=== PATIENT | female | born 1970 | race African-American/Black ===

== ENCOUNTER 2017-06-14 08:50 | Emergency (ER) | payer OTHER ==
[2017-06-14 09:11] VITALS: BP 140/91; PULSE 79; TEMP 98.7; BMI 36.3
[2017-06-14] MEDS ORDERED: KETOROLAC TROMETHAMINE 60 MG/2 ML VIAL IM ONE (10:10)
[2017-06-14] MEDS ORDERED: KETOROLAC TROMETHAMINE 60 MG/2 ML VIAL ONE (10:17)
--- NOTE | 2017-06-14 10:59 | PDOC ---
History of Present Illness - General Chief Complaint: Pain Stated Complaint: RT KNEE PAIN Time Seen by Provider: 06/14/17 09:55 History Source: Patient Exam Limitations: No Limitations - History of Present Illness Initial Comments: 06/14/17 10:54 47 yr female history of right knee injury in the past, arthritis , states last night she was in the bath tub and she "locked her knee" . Pt today has pain and needs a referral to an orthopedist. pt is ambulating with steady gait. Severity: Yes: mild Lower Ext. Injury Location - Specific Injury Location Knees: right no evidence of injury, right swelling Past History - Past Medical History Allergies/Adverse Reactions: Allergies Allergy/AdvReac Type Severity Reaction Status Date / Time Sulfa (Sulfonamide Allergy Verified 06/14/17 09:11 Antibiotics) Home Medications: Ambulatory Orders Chlorthalidone 25 mg PO DAILY 06/14/17 Naproxen [Naprosyn -] 500 mg PO BID PRN #14 tablet 06/14/17 COPD: No HTN: Yes - Suicide/Smoking/Psychosocial Hx Smoking History: Never smoked Hx Alcohol Use: No Drug/Substance Use Hx: No *Physical Exam - Vital Signs Last Vital Signs Temp Pulse Resp BP Pulse Ox 98.7 F 79 18 140/91 100 06/14/17 09:08 06/14/17 09:08 06/14/17 09:08 06/14/17 09:08 06/14/17 09:08 - Physical Exam General Appearance: Yes: Nourished, Appropriately Dressed HEENT: positive: EOMI, SUBHASH Neck: positive: Supple. negative: Tender Respiratory/Chest: positive: Lungs Clear, Normal Breath Sounds. 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, Fully Oriented, Alert, Normal Mood/ Affect, Normal Response, Motor Strength 5/5 ED Treatment Course - RADIOLOGY Radiology Studies Ordered: Category Date Time Status KNEE 3 POS-RIGHT [RAD] Stat Radiology 06/14/17 10:10 Taken - Medications Given in the ED: ED Medications Discontinued Medications Generic Name Dose Route Start Last Admin Trade Name Freq PRN Reason Stop Dose Admin Ketorolac Tromethamine 60 mg 06/14/17 10:10 06/14/17 10:27 Toradol Injection - IM 06/14/17 10:11 60 mg ONCE ONE Administration Medical Decision Making - Medical Decision Making 06/14/17 11:03 cc: right knee pain , mild swelling did not fall on the knee will get xray to r/o fracture knee immobilizer and toradol IM will refer to orthopedist pt agrees with the plan of care all questions asked and answered at discharge 06/14/17 11:22 *DC/Admit/Observation/Transfer Diagnosis at time of Disposition: Sprain, knee Qualifiers: Encounter type: initial encounter Involved ligament of knee: other ligament Laterality: right Qualified Code(s): S83.8X1A - Sprain of other specified parts of right knee, initial encounter - Discharge Dispostion Disposition: HOME Condition at time of disposition: Good - Prescriptions Prescriptions: Naproxen [Naprosyn -] 500 mg PO BID PRN #14 tablet PRN Reason: Pain - Referrals Referrals: Sandro Morillo MD [Staff Physician] - - Patient Instructions Additional Instructions: use the knee immobilizer while awake remove to sleep take naprosyn for pain as directed follow with the orthopedist listed below elevate your knee and apply warm compresses to the knee every 4hrs for 20 minutes - Post Discharge Activity Forms/Work/School Notes: Back to Work
== END 2017-06-14 11:25 | disposition home or self-care (01) ==
LOC: JERFT 08:50
PROC: 3E0233Z Introduction of Anti-inflammatory into Muscle, Percutaneous Approach (ICD-10-PCS; principal; 2017-06-14)
PROC: 2W3QXYZ Immobilization of Right Lower Leg using Other Device (ICD-10-PCS; 2017-06-14)
DX: S83.8X1A Sprain of other specified parts of right knee, initial encounter (principal); X50.1XXA Overexertion from prolonged static or awkward postures, initial encounter; Y93.E1 Activity, personal bathing and showering; Y92.031 Bathroom in apartment as the place of occurrence of the external cause; Y99.8 Other external cause status
CPT/HCPCS: 73562-TC-RT; 99281-25

== ENCOUNTER 2018-08-10 14:41 | Emergency (ER) | payer OTHER ==
[2018-08-10 14:47] VITALS: BP 162/85; PULSE 64; TEMP 98.1; BMI 36.6
--- NOTE | 2018-08-10 14:48 | PDOC ---
Rapid Medical Evaluation Chief Complaint: Chest Pain Time Seen by Provider: 08/10/18 14:47 Medical Evaluation: Allergies Allergy/AdvReac Type Severity Reaction Status Date / Time Sulfa (Sulfonamide Allergy Verified 08/10/18 14:44 Antibiotics) Vital Signs Temp Pulse Resp BP Pulse Ox 98.1 F 64 18 162/85 98 08/10/18 14:45 08/10/18 14:45 08/10/18 14:45 08/10/18 14:45 08/10/18 14:45 08/10/18 14:48 I have performed a brief in-person evaluation of this patient. The patient presents with a chief complaint of: 4 days of nausea and epigastric discomfort. H/o HTN Pertinent physical exam findings:Stable I have ordered the following:ekg/labs The patient will proceed to the ED for further evaluation. Discharge Disposition - Diagnosis Epigastric discomfort - Referrals - Patient Instructions - Post Discharge Activity
[2018-08-10 15:38] LABS: ALBUMIN 3.9 g/dl (3.4-5.0); ALK PHOS 65 U/L (45-117); ANION GAP 6 MMOL/L (8-16); BILIRUBIN,TOTAL 0.4 mg/dL (0.2-1); BLOOD UREA NITROGEN 17 mg/dL (7-18); CALCIUM 8.8 mg/dL (8.5-10.1); CHLORIDE 103 mmol/L (98-107); CO2 28 mmol/L (21-32); CREATININE 0.7 mg/dL (0.55-1.3); GLUCOSE,RANDOM 79 mg/dL (74-106); LIPASE 156 U/L (73-393); POTASSIUM 3.4 mmol/L (3.5-5.1); SGOT/AST 15 U/L (15-37); SGPT/ALT 18 U/L (13-61); SODIUM 137 mmol/L (136-145); TOT PROT 6.8 g/dl (6.4-8.2)
[2018-08-10 15:40] LABS: URINE APPEARANCE CLOUDY; URINE BILIRUBIN NEGATIVE (<2.0 mg/dL); URINE COLOR YELLOW; URINE GLUCOSE (UA) NEGATIVE (NEGATIVE); URINE KETONE NEGATIVE (NEGATIVE); URINE LEUK ESTERASE NEGATIVE (NEGATIVE); URINE NITRITE NEGATIVE (NEGATIVE); URINE PROTEIN NEGATIVE (NEGATIVE)
[2018-08-10 15:40] LABS: BASO % 0.5 % (0-2.0); EOS % 1.2 % (0-4.5); HEMATOCRIT 38.9 % (32.4-45.2); HEMOGLOBIN 13.6 GM/dL (10.7-15.3); LYMPH % 28.8 % (8-40); MCH 29.2 pg (25.7-33.7); MCHC 34.9 g/dl (32.0-36.0); MEAN CELL VOLUME 83.7 fl (80-96); MONO % 6.5 % (3.8-10.2); PLATELET COUNT 235 K/MM3 (134-434); RBC 4.65 M/mm3 (3.60-5.2)
--- NOTE | 2018-08-11 22:05 | EKG ---
Test Reason : Blood Pressure : / mmHG Vent. Rate : 061 BPM Atrial Rate : 061 BPM P-R Int : 190 ms QRS Dur : 084 ms QT Int : 422 ms P-R-T Axes : 023 045 018 degrees QTc Int : 424 ms NORMAL SINUS RHYTHM SEPTAL INFARCT , AGE UNDETERMINED ABNORMAL ECG NO PREVIOUS ECGS AVAILABLE Confirmed by DUSTIN JARRELL MD ([id number]) on 08/11/2018 10:05:25 PM Referred By: Confirmed By:DUSTIN JARRELL MD
== END 2018-08-10 23:00 | disposition left against medical advice (07) ==
LOC: JER 14:41
DX: R10.13 Epigastric pain (principal); R11.0 Nausea; I10 Essential (primary) hypertension
CPT/HCPCS: 36415; 80053; 81003; 82550; 83690; 84484; 84703; 85025; 93005; 93010; 99281-25

== ENCOUNTER 2019-08-26 16:22 | Emergency (ER) | payer OTHER ==
[2019-08-26 16:51] VITALS: TEMP 98.2; BMI 34.4
--- NOTE | 2019-08-26 16:52 | PDOC ---
Rapid Medical Evaluation Time Seen by Provider: 08/26/19 16:47 Medical Evaluation: Allergies Allergy/AdvReac Type Severity Reaction Status Date / Time Sulfa (Sulfonamide Allergy Verified 08/26/19 16:48 Antibiotics) 08/26/19 16:48 I have performed a brief in-person evaluation of this patient. The patient presents with a chief complaint of: LUQ pain, nausea and diarrhea x 3 days. No sick contact, abx use or recent travel Pertinent physical exam findings:Stable and well romina I have ordered the following:nothing The patient will proceed to the ED for further evaluation Discharge Disposition - Diagnosis Nausea Diarrhea Qualifiers: Diarrhea type: unspecified type Qualified Code(s): R19.7 - Diarrhea, unspecified - Referrals - Patient Instructions - Post Discharge Activity
[2019-08-26] MEDS ORDERED: ONDANSETRON 4 MG/2 ML VIAL IVPUSH ONE (17:52)
[2019-08-26] MEDS ORDERED: SODIUM CHLORIDE 1,000 ML IV STA (17:52)
[2019-08-26] MEDS ORDERED: DICYCLOMINE HCL 20 MG TABLET PO ONE (17:52)
[2019-08-26] MEDS ORDERED: FAMOTIDINE 20 MG/50 ML IVPB 20 MG/50 ML MG IVPB ONE ×2 (17:52→18:19)
[2019-08-26 18:17] LABS: URINE APPEARANCE CLOUDY; URINE BILIRUBIN NEGATIVE (NEGATIVE); URINE COLOR YELLOW; URINE GLUCOSE (UA) NEGATIVE (NEGATIVE); URINE KETONE NEGATIVE (NEGATIVE); URINE LEUK ESTERASE NEGATIVE (NEGATIVE); URINE NITRITE NEGATIVE (NEGATIVE); URINE PROTEIN NEGATIVE (NEGATIVE)
[2019-08-26] MEDS ORDERED: DICYCLOMINE HCL 10 MG CAPSULE ONE (18:18)
[2019-08-26] MEDS ORDERED: ONDANSETRON 4 MG/2 ML VIAL ONE (18:19)
[2019-08-26 18:37] LABS: BASO % 0.6 % (0-2.0); EOS % 1.3 % (0-4.5); HEMATOCRIT 37.2 % (32.4-45.2); HEMOGLOBIN 12.7 GM/dL (10.7-15.3); LYMPH % 18.5 % (8-40); MCH 28.4 pg (25.7-33.7); MCHC 34.2 g/dl (32.0-36.0); MONO % 5.7 % (3.8-10.2); NEUT % 73.9 % (42.8-82.8); PLATELET COUNT 264 K/MM3 (134-434); RBC 4.48 M/mm3 (3.60-5.2); RDW 13.6 % (11.6-15.6); WHITE BLOOD COUNT 8.1 K/mm3 (4.0-10.0)
--- NOTE | 2019-08-26 18:43 | PDOC ---
History of Present Illness - General Chief Complaint: Pain Stated Complaint: UPSET STOMACH Time Seen by Provider: 08/26/19 16:47 History Source: Patient Exam Limitations: No Limitations - History of Present Illness Initial Comments: 08/26/19 18:40 Patient is a 49-year-old female with a history of hypertension who presents to the ED with epigastric abdominal pain, nausea and diarrhea for the last 10 days. She states that her symptoms started after eating fried shrimp. She took 1 Imodium which did help her diarrhea. She denies any fevers or chills. She has been drinking fluids. She states she is nauseated but has not vomited. She denies any recent travel or sick contacts. Past History - Past Medical History Allergies/Adverse Reactions: Allergies Allergy/AdvReac Type Severity Reaction Status Date / Time Sulfa (Sulfonamide Allergy Verified 08/26/19 16:48 Antibiotics) Home Medications: Ambulatory Orders Chlorthalidone 25 mg PO DAILY 06/14/17 COPD: No HTN: Yes - Psycho Social/Smoking Cessation Hx Smoking History: Never smoked Information on smoking cessation initiated: No Hx Alcohol Use: No Drug/Substance Use Hx: No Review of Systems - Review of Systems Comments:: 08/26/19 18:41 - Review of Systems Able to Perform ROS?: Yes Constitutional: No: Fever, Chills, Loss of Appetite, Night Sweats, Weakness Respiratory: No: Cough, Shortness of Breath, Wheezing, Sputum Production Cardiac (ROS): No: Chest Pain, Chest Tightness, Palpitations, Irregular Heart Beat, Edema ABD/GI: No: Vomiting; positive: Abdominal Pain, Diarrhea, nausea : No Dysuria, No Hematuria, No Frequency, No Urgency, No Vaginal Discharge/Pain Musculoskeletal: No: Muscle Pain, Back Pain, Joint Pain, Muscle Weakness, Neck Pain Integumentary: No: Lesions, Rash Neurological: No: Headache, Numbness, Tingling, Weakness, Speech Difficulties *Physical Exam - Vital Signs Last Vital Signs Temp Pulse Resp BP Pulse Ox 98.2 F 77 18 134/79 100 08/26/19 16:48 08/26/19 16:48 08/26/19 16:48 08/26/19 16:48 08/26/19 16:48 - Physical Exam 08/26/19 18:41 - Physical Exam General Appearance: Nourished, Appropriately Dressed, No Distress HEENT: EOMI, Normal Voice, moist mucosa Neck: Supple, No Lymphadenopathy (R), No Lymphadenopathy (L), No Rigidity, No Decreased range of motion Respiratory/Chest: Lungs Clear, Normal Breath Sounds. No Respiratory Distress, No Accessory Muscle Use Cardiovascular: Regular Rhythm, Regular Rate, S1, S2 Gastrointestinal/Abdominal: Normal Bowel Sounds, Soft. No Guarding, No Rebound, No Rigidity; moderate epigastric tenderness to palpation. No CVA tenderness bilaterally. Musculoskeletal: Normal Inspection. No Decreased Range of Motion Extremity: Normal Capillary Refill, Normal Inspection Integumentary: Normal Color, Dry. 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, Fully Oriented, Alert, Normal Mood/Affect, Normal Response ED Treatment Course - LABORATORY CBC & Chemistry Diagram: 08/26/19 18:10 08/26/19 18:10 - ADDITIONAL ORDERS Additional order review: Laboratory Results 08/26/19 17:53 Urine Color Yellow Urine Appearance Cloudy Urine pH 7.0 D Ur Specific [place] 1.015 Urine Protein Negative Urine Glucose (UA) Negative Urine Ketones Negative Urine Blood Negative Urine Nitrite Negative Urine Bilirubin Negative Urine Urobilinogen 1.0 Ur Leukocyte Esterase Negative - Medications Given in the ED: ED Medications Discontinued Medications Generic Name Dose Route Start Last Admin Trade Name Freq PRN Reason Stop Dose Admin Dicyclomine HCl 20 mg 08/26/19 17:52 08/26/19 18:29 Bentyl - PO 08/26/19 17:53 20 mg ONCE ONE Administration Famotidine/Sodium Chloride 20 mg in 50 mls @ 100 mls/hr 08/26/19 17:52 08/25 18:29 Pepcid 20 Mg Premixed Ivpb - IVPB 08/26/19 18:21 100 mls/hr ONCE ONE Administration Ondansetron HCl 4 mg 08/26/19 17:52 08/26/19 18:30 Zofran Injection IVPUSH 08/26/19 17:53 4 mg ONCE ONE Administration Medical Decision Making - Medical Decision Making 08/26/19 18:42 Assessment: Patient is a 49-year-old female with epigastric abdominal pain, nausea and diarrhea over the last 10 days. Plan: -Saline lock and fluids ordered -Labs ordered -Pepcid, Zofran and Bentyl ordered -Will reassess 03/09/20 18:58 The patient is feeling much better after her GI cocktail. She still pending her CMP. If her CMP is within normal limits and she continues to feel well she may be discharged. She has been endorsed to [facility] for further evaluation and treatment. The patient is stable at the time of endorsement. Discharge - Discharge Information Problems reviewed: Yes Clinical Impression/Diagnosis: Nausea Diarrhea Qualifiers: Diarrhea type: unspecified type Qualified Code(s): R19.7 - Diarrhea, unspecified - Follow up/Referral Referrals: ON STAFF,NOT [Primary Care Provider] - - Patient Discharge Instructions - Post Discharge Activity
[2019-08-26 19:17] LABS: ALBUMIN 3.9 g/dl (3.4-5.0); BILIRUBIN,TOTAL 0.4 mg/dL (0.2-1); BLOOD UREA NITROGEN 19.8 mg/dL (7-18); CALCIUM 9.4 mg/dL (8.5-10.1); CREATININE 0.7 mg/dL (0.55-1.3); POTASSIUM 3.5 mmol/L (3.5-5.1); TOT PROT 7.1 g/dl (6.4-8.2)
[2019-08-26 19:38] VITALS: BP 133/74; PULSE 63
--- NOTE | 2019-08-26 19:52 | PDOC ---
*Physical Exam - Vital Signs Last Vital Signs Temp Pulse Resp BP Pulse Ox 98.2 F 63 18 133/74 100 08/26/19 19:20 08/26/19 19:20 08/26/19 19:20 08/26/19 19:20 08/26/19 19:20 - Physical Exam General Appearance: Yes: Appropriately Dressed ED Treatment Course - LABORATORY CBC & Chemistry Diagram: 08/26/19 18:10 08/26/19 18:10 - ADDITIONAL ORDERS Additional order review: Laboratory Results 08/26/19 08/26/19 18:10 17:53 Sodium 135 L Potassium 3.5 Chloride 100 Carbon Dioxide 27 Anion Gap 8 BUN 19.8 H Creatinine 0.7 Est GFR (CKD-EPI)AfAm 117.91 Est GFR (CKD-EPI)NonAf 101.74 Random Glucose 111 H Calcium 9.4 Total Bilirubin 0.4 AST 19 ALT 17 Alkaline Phosphatase 73 Total Protein 7.1 Albumin 3.9 Lipase 120 Urine Color Yellow Urine Appearance Cloudy Urine pH 7.0 D Ur Specific [place] 1.015 Urine Protein Negative Urine Glucose (UA) Negative Urine Ketones Negative Urine Blood Negative Urine Nitrite Negative Urine Bilirubin Negative Urine Urobilinogen 1.0 Ur Leukocyte Esterase Negative 08/26/19 18:10 RBC 4.48 MCV 83.0 MCHC 34.2 RDW 13.6 MPV 8.0 Neutrophils % 73.9 Lymphocytes % 18.5 D Monocytes % 5.7 Eosinophils % 1.3 Basophils % 0.6 - Medications Given in the ED: ED Medications Discontinued Medications Generic Name Dose Route Start Last Admin Trade Name Freq PRN Reason Stop Dose Admin Dicyclomine HCl 20 mg 08/26/19 17:52 08/26/19 18:29 Bentyl - PO 08/26/19 17:53 20 mg ONCE ONE Administration Famotidine/Sodium Chloride 20 mg in 50 mls @ 100 mls/hr 08/26/19 17:52 08/26/19 18:29 Pepcid 20 Mg Premixed Ivpb - IVPB 08/26/19 18:21 100 mls/hr ONCE ONE Administration Sodium Chloride 1,000 mls @ 1,000 mls/hr 08/26/19 17:52 08/26/19 18:29 Normal Saline - IV 08/26/19 18:51 1,000 mls/hr ASDIR STA Administration Ondansetron HCl 4 mg 08/26/19 17:52 08/26/19 18:30 Zofran Injection IVPUSH 08/26/19 17:53 4 mg ONCE ONE Administration Medical Decision Making - Medical Decision Making 08/26/19 19:49 patient is feeling better will d.c home EKG: NSR. EKG changes to V3. old EKG on 08/10/2018 similar findings. patient has a cardiology appt this week in 2 days. Discharge - Discharge Information Problems reviewed: Yes Clinical Impression/Diagnosis: Nausea Diarrhea Qualifiers: Diarrhea type: unspecified type Qualified Code(s): R19.7 - Diarrhea, unspecified Disposition: HOME - Additional Discharge Information Prescriptions: Mag Hydrox/Al Hydrox/Simeth [Mylanta Suspension -] 30 ml PO Q6H PRN #1 bottle PRN Reason: Gas Famotidine [Pepcid -] 40 mg PO DAILY #30 tablet - Follow up/Referral Referrals: ON STAFF,NOT [Primary Care Provider] - - Patient Discharge Instructions Patient Printed Discharge Instructions: [place] Diet Additional Instructions: Drink plenty of fluids start a BRAT ( bananas, rice apples toast) follow up with your doctor as soon as possible. return to the ER if symptoms worsen - Post Discharge Activity Work/Back to School Note: Back to Work
--- NOTE | 2019-08-27 11:01 | EKG ---
Test Reason : Blood Pressure : / mmHG Vent. Rate : 069 BPM Atrial Rate : 069 BPM P-R Int : 160 ms QRS Dur : 094 ms QT Int : 428 ms P-R-T Axes : 013 049 013 degrees QTc Int : 458 ms NORMAL SINUS RHYTHM SEPTAL INFARCT (CITED ON OR BEFORE 10-AUG-2018) ABNORMAL ECG WHEN COMPARED WITH ECG OF 10-AUG-2018 15:06, NO SIGNIFICANT CHANGE WAS FOUND Confirmed by Agusto Singh MD ([id number]) on 08/27/2019 11:00:33 AM Referred By: Confirmed By:Agusto Singh MD
== END 2019-08-26 20:09 | disposition home or self-care (01) ==
LOC: JER 16:22
PROC: 3E033GC Introduction of Other Therapeutic Substance into Peripheral Vein, Percutaneous Approach (ICD-10-PCS; principal; 2019-08-26)
PROC: 3E033GC Introduction of Other Therapeutic Substance into Peripheral Vein, Percutaneous Approach (ICD-10-PCS; 2019-08-26)
DX: R11.0 Nausea (principal); R19.7 Diarrhea, unspecified; I10 Essential (primary) hypertension; Z88.2 Allergy status to sulfonamides
CPT/HCPCS: 36415; 80053; 81003; 83690; 85025; 93005; 93010; 99284-25; J7030

== ENCOUNTER 2020-03-11 11:37 | Emergency (ER) | payer OTHER ==
[2020-03-11 11:47] VITALS: BP 120/81; PULSE 95; TEMP 98.1; BMI 25.2
--- NOTE | 2020-03-11 12:07 | PDOC ---
Documentation entered by Cheri Orellana SCRIBE, acting as scribe for Malini Boyer MD. Malini Boyer MD: This documentation has been prepared by the Esteban eaton Xhesika, SCRIBE, under my direction and personally reviewed by me in its entirety. I confirm that the documentation accurately reflects all work, treatment, procedures, and medical decision making performed by me. History of Present Illness - General Chief Complaint: Hemorrhoids Stated Complaint: ABD PAIN Time Seen by Provider: 03/11/20 11:56 History Source: Patient Exam Limitations: No Limitations - History of Present Illness Initial Comments: 03/11/20 12:02 HPI Patient is a 49-year-old female with a history of hypertension who presents to the ED with 1 week of rectal pain, worse today associated with bowel movement that was painful and small amount of blood. Pt also reports abdominal pain since 07/2019. Pt was seen here in the ED 03/05 for similar symptoms, blood work was wnl and MRCP from 03/05/20 shows an incidental right liver lobe hemangioma, hepatic cysts, small amount of gallbladder sludge no evidence of cholecystitis. 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 Pt states she has been following with GI (Dr. Willett) for her symptoms. Pt states she last had a endoscopy and colonoscopy November 2019. Pt states she has been constipated for the past week but, had a normal BM this morning. Denies fever, chills, chest pain, SOB, palpitation, dizziness, weakness, N, V, D, bladder and bowel problems, leg swelling, No new changes in medications. no suspicious food intake. Of note, CT abdomen and pelvis from January 2020 with mild gastric thickening, similarly seen right lobe hepatic angioma otherwise no acute pathology is noted. Allergies: Sulfa Past Medical History: See HPI Social history: Lives with family. No tobacco, ETOH or drug use. Meds: as documented in EMR PMD: Per Patient, '"Dr. Norman" at [facility] Review of systems Constitutional: no fevers or chills. No weakness HEENT: no headache or dizziness. No congestion. No visual/hearing disturbances. CVS: no cp or syncope. Resp: no sob. No cough. Gastrointestinal: +abdominal pain. +rectal pain. +constipation.. No nausea, vomiting, diarrhea. Genitourinary: no urinary sx, hematuria. no urgency or frequency. MUSCULOSKELETAL: No joint pain and swelling. No neck or back pain. SKIN: no redness or skin changes, no discharge, no rash. No wounds. Hematologic: no easy bruising/bleeding. NEUROLOGIC: No headache, dizziness, LOC or altered mental status. No weakness, numbness or tingling. Psych: no anxiety or depression Allergic/Immunologic: no allergies All other systems reviewed and negative, or as documented in HPI. Physical exam General: awake and alert, crying, mild distress 2/2 pain. HEENT: NCAT, PERRL, EOMI, clear conjunctiva, anicteric, moist mucus membranes, clear oropharynx, no oral lesions.. Neck: neck supple, FROM Resp: CTAB, normal and even respirations, no respiratory distress CVS: RRR, no murmurs, 2+ peripheral pulses throughout, no peripheral edema Abdomen: soft, NTND, no rebound or guarding. No CVAT. Back: nontender, normal inspection and ROM MSK: no edema, CRAIG x4, ROM intact. No clubbing or cyanosis. normal bulk and tone. Rectal: No blood, no tarry stools or melena or hematochezia. No hemorrhoids. + moderately sized,soft, reducible rectal prolapse involving mucosa. +very tender to palpation. Extremities: no calf tenderness Neuro: alert, oriented appropriately; no focal neurologic deficits Psych: cooperative Skin: warm and well perfused, cap refill <2 sec, normal color 03/11/20 12:45 03/11/20 12:56 03/11/20 13:00 Past History - Medical History Allergies/Adverse Reactions: Allergies Allergy/AdvReac Type Severity Reaction Status Date / Time Sulfa (Sulfonamide Allergy Verified 08/26/19 16:48 Antibiotics) Home Medications: Ambulatory Orders Chlorthalidone 25 mg PO DAILY 06/14/17 Famotidine [Pepcid -] 40 mg PO DAILY #30 tablet 08/26/19 Mag Hydrox/Al Hydrox/Simeth [Mylanta Suspension -] 30 ml PO Q6H PRN #1 bottle 08/26/19 Hydrocortisone 2.5% Topical Cr [Anusol 2.5% Hc Cream -] 1 applic RC DAILY PRN #1 tube 03/11/20 COPD: No HTN: Yes - Reproductive History Is Patient Now?: No - Immunization History Immunization Up to Date: No - Psycho-Social/Smoking History Smoking History: Never smoked Have you smoked in the past 12 months: No Information on smoking cessation initiated: No - Substance Abuse Hx (Audit-C & DAST Scrn) How often the patient has a drink containing alcohol: Never Score: In Men: 4 or > Positive; In Women: 3 or > Positive: 0 Screen Result (Pos requires Nsg. Audit-10AR): Negative In the last yr the pt used illegal drug/Rx for NonMed reason: No Score: Yes response is considered Positive: 0 Screen Result (Positive result requires Nsg. DAST-10): Negative *Physical Exam - Vital Signs Last Vital Signs Temp Pulse Resp BP Pulse Ox 98.1 F 95 H 16 120/81 99 03/11/20 11:43 03/11/20 11:43 03/11/20 11:43 03/11/20 11:43 03/11/20 11:43 Medical Decision Making - Medical Decision Making 03/11/20 12:58 Vital Signs Temp Pulse Resp BP Pulse Ox 98.1 F 95 H 16 120/81 99 03/11/20 11:43 03/11/20 11:43 03/11/20 11:43 03/11/20 11:43 03/11/20 11:43 Vital signs are reviewed within normal limits Abdominal exam is unremarkable, no peritoneal signs. Rectal exam negative for any bleeding, hematochezia, melena. She is very tender with rectal prolapse that was reducible. EMLA applied High-fiber diet, constipation care, plenty of fluids and hydration are advised Follow-up with Dr. Willett in 1 week as scheduled. Patient was also given results of her blood work as well as MRCP and CT scan with the findings discussed and as pt requested.. Discharge - Discharge Information Problems reviewed: Yes Clinical Impression/Diagnosis: Rectal mucosa prolapse Condition: Improved Disposition: HOME - Admission No - Additional Discharge Information Prescriptions: Hydrocortisone 2.5% Topical Cr [Anusol 2.5% Hc Cream -] 1 applic RC DAILY PRN #1 tube PRN Reason: rectal pain - Follow up/Referral Referrals: Jean-Pierre Willett MD [Staff Physician] - - Patient Discharge Instructions Patient Printed Discharge Instructions: DI for Rectal Prolapse Additional Instructions: 1) Please follow-up with your primary care doctor in the next 1-2 days. Please call tomorrow for for any urgent issues. follow up with Dr Willett in 1 week as scheduled so you can discuss your symptoms and care. 2) You were given a copy of the tests performed today. Please bring the results with you and review them with your primary care doctor. Your laboratory / imaging results were normal, and provided to you that was done as outpatient 3) If you have any worsening of symptoms or any other concerns please return to the ED immediately. Return if worsening symptoms including fevers, headache, vomiting, visual or hearing disturbances, bloody stools, abdominal pain, chest pain, shortness of breath, syncope, dehydration, inability to take things by mouth/vomiting, altered mental status, or worsening concerning symptoms. 4) Please continue taking your home medications as directed. your medications on discharge include Anusol once daily as needed for rectal pain . you should also take your stool softeners to prevent constipation and hard stools high fiber diet and hydration/ plenty of water is encouraged Stay well hydrated and rest adequately. Make an appointment. If you cannot follow-up with your primary care doctor please return to the ED - Post Discharge Activity
[2020-03-11] MEDS ORDERED: LIDOCAINE 2.5%/PRILOCAINE 2.5% (5 Gram/TUBE) TP ONE ×2 (12:51→12:59)
== END 2020-03-11 13:13 | disposition home or self-care (01) ==
LOC: JER 11:37
DX: K62.3 Rectal prolapse (principal)
CPT/HCPCS: 99284-25

== ENCOUNTER 2023-02-20 16:02 | Emergency (ER) | payer OTHER ==
[2023-02-20 16:10] VITALS: BP 105/53; PULSE 85; RESP 18; TEMP 98.2; BMI 32.5
[2023-02-20] MEDS ORDERED: diazePAM 5 MG TABLET PO ONE (17:08)
[2023-02-20] MEDS ORDERED: LIDOCAINE 5% TOPICAL PATCH TP ONE (17:08)
[2023-02-20] MEDS ORDERED: KETOROLAC TROMETHAMINE 30 MG/1 ML VIAL IM ONE (17:08)
[2023-02-20] MEDS ORDERED: diazePAM 5 MG TABLET ONE (17:24)
[2023-02-20] MEDS ORDERED: LIDOCAINE 5% TOPICAL PATCH ONE (17:24)
[2023-02-20] MEDS ORDERED: KETOROLAC TROMETHAMINE 30 MG/1 ML VIAL ONE (17:24)
[2023-02-20] MEDS ORDERED: LIDOCAINE PATCH REMOVAL MC SCH (22:00)
== END 2023-02-20 17:34 | disposition home or self-care (01) ==
LOC: JERFT 16:02
PROC: 3E0233Z Introduction of Anti-inflammatory into Muscle, Percutaneous Approach (ICD-10-PCS; principal; 2023-02-20)
DX: M54.50 Low back pain, unspecified (principal); G89.29 Other chronic pain
CPT/HCPCS: 99284-25

== ENCOUNTER 2023-03-24 06:11 | Day surgery (SDC) | payer OTHER ==
[2023-03-21 09:49] VITALS: BMI 25.2
[2023-03-24] MEDS ORDERED: CEFAZOLIN 2 GM in DEXTROSE 5%-WATER - 50 ML IVPB ONE (07:00)
[2023-03-24] MEDS ORDERED: VANCOMYCIN 1,000 MG VIAL (RESTRICTED TO ID ONLY) ONE ×2 (07:10→08:30)
[2023-03-24] MEDS ORDERED: MIDAZOLAM HCL 2 MG/2 ML SINGLE DOSE VIAL ONE ×2 (07:32→07:50)
[2023-03-24] MEDS ORDERED: BUPIVACAINE HCL/PF 0.5% (5 MG/ML) 30 ML VIAL IJ ONE (07:32)
[2023-03-24] MEDS ORDERED: BUPIVACAINE LIPOSOME/PF (EXPAREL) 266 MG/20 ML VIAL ONE (07:32)
[2023-03-24] MEDS ORDERED: PROPOFOL 40 ML ONE ×2 (07:50→08:33)
[2023-03-24] MEDS ORDERED: BUPIVACAINE HCL/PF 0.5% (5MG/ML) 10 ML VIAL ONE (07:54)
[2023-03-24] MEDS ORDERED: TRANEXAMIC ACID 1000 MG/10 ML VIAL IVPUSH ONE (08:00)
[2023-03-24] MEDS ORDERED: KETOROLAC TROMETHAMINE 30 MG/1 ML VIAL ONE (08:30)
[2023-03-24] MEDS ORDERED: TRANEXAMIC ACID 1000 MG/10 ML VIAL ONE (08:30)
[2023-03-24] MEDS ORDERED: PHENYLEPHRINE HCL 10 MG/1 ML SINGLE DOSE VIAL ONE (08:30)
[2023-03-24] MEDS ORDERED: ONDANSETRON 4 MG/2 ML VIAL ONE (08:30)
[2023-03-24] MEDS ORDERED: SODIUM CHLORIDE 0.9% P/F 10 ML VIAL IJ ONE (08:30)
[2023-03-24] MEDS ORDERED: DEXAMETHASONE SOD PHOSPHATE 4 MG/1 ML VIAL ONE (08:30)
[2023-03-24] MEDS ORDERED: ceFAZolin SODIUM 1 GM VIAL ONE (08:30)
[2023-03-24] MEDS ORDERED: BUPIVICAINE 0.25%/MORPH PF/KETOROLAC - 51ML DISP.SYRINGE IA ONE (09:21)
[2023-03-24] MEDS ORDERED: PROPOFOL 20 ML ONE (09:43)
[2023-03-24] MEDS ORDERED: ONDANSETRON 4 MG/2 ML VIAL IVPUSH PRN ×2 (10:56→10:58)
[2023-03-24] MEDS ORDERED: MAG HYDROX/AL HYDROX/SIMETH 30 ML UNIT-DOSE CUP PO PRN (10:56)
[2023-03-24] MEDS ORDERED: ACETAMINOPHEN 1000 MG/100 ML BAG IVPB ONE (10:58)
[2023-03-24] MEDS ORDERED: oxyCODONE HCL 5 MG TABLET PO PRN ×2 (10:58)
[2023-03-24] MEDS ORDERED: LACTATED RINGERS SOLUTION 1,000 ML IV SCH ×2 (11:00)
[2023-03-24] MEDS ORDERED: GLYCOPYRROLATE 0.2 MG/1 ML VIAL IVPB ONE (11:00)
[2023-03-24] MEDS ORDERED: KETOROLAC TROMETHAMINE 30 MG/1 ML VIAL IVPUSH SCH (14:30)
[2023-03-24] MEDS ORDERED: diazePAM 5 MG TABLET PO PRN (15:12)
[2023-03-24] MEDS: CEFAZOLIN SODIUM 2 GM in DEXTROSE 5%-WATER 100 ML IVPB SCH ×2 (17:47→23:52)
[2023-03-24] MEDS: GABAPENTIN 300 MG CAPSULE PO SCH (21:52)
[2023-03-24] MEDS: SENNOSIDES/DOCUSATE COMBO (SENNA PLUS) TABLET (UD) PO SCH (21:52)
[2023-03-24] MEDS: ACETAMINOPHEN 500 MG TABLET (FP) PO SCH (21:52)
[2023-03-24] MEDS ORDERED: ASPIRIN 81 MG CHEWABLE TABLETS PO SCH (22:00)
[2023-03-24] MEDS: oxyCODONE HCL 10 MG SUSTAINED ACTING TABLET PO SCH (23:36)
[2023-03-24] MEDS: NABUMETONE 750 MG TABLET PO SCH (23:53)
[2023-03-25] MEDS: ACETAMINOPHEN 500 MG TABLET (FP) PO SCH ×2 (06:22→08:20)
[2023-03-25] MEDS: CEFAZOLIN SODIUM 2 GM in DEXTROSE 5%-WATER 100 ML IVPB SCH (08:22)
[2023-03-25 08:24] LABS: HEMATOCRIT 40.1 % (32.4-45.2); HEMOGLOBIN 13.3 G/dL (10.7-15.3); MCH 29.2 pg (25.7-33.7); MCHC 33.2 g/dl (32.0-36.0); MEAN CELL VOLUME 87.9 fl (80-96); MEAN PLT VOLUME 7.5 fl (7.5-11.1); PLATELET COUNT 220.6 10^3/uL (134-434); RBC 4.56 10^6/uL (3.60-5.2); RDW 15.3 % (11.6-15.6); WHITE BLOOD COUNT 11.4 10^3/uL (4.0-10.8)
[2023-03-25 08:49] LABS: BLOOD UREA NITROGEN 16.8 mg/dl (7-18); CALCIUM 9.1 mg/dl (8.5-10.1); POTASSIUM 4.5 mmol/L (3.5-5.1)
[2023-03-25] MEDS ORDERED: PANTOPRAZOLE 40 MG TABLET PO SCH (10:00)
[2023-03-25] MEDS ORDERED: metoPROLOL SUCCINATE 25 MG TAB.SR.24H (FP) PO SCH ×2 (10:00)
[2023-03-25] MEDS ORDERED: PANTOPRAZOLE 20 MG TABLET PO SCH (10:00)
[2023-03-25] MEDS ORDERED: MULTIVITAMINS (DAILY MVI) TABLET (FP) PO SCH (10:00)
[2023-03-25] MEDS ORDERED: ASPIRIN 81 MG CHEWABLE TABLETS PO SCH (10:00)
[2023-03-25] MEDS: oxyCODONE HCL 10 MG SUSTAINED ACTING TABLET PO SCH (10:03)
[2023-03-25] MEDS: SENNOSIDES/DOCUSATE COMBO (SENNA PLUS) TABLET (UD) PO SCH (10:05)
[2023-03-25] MEDS: NABUMETONE 750 MG TABLET PO SCH (10:07)
[2023-03-25] MEDS: GABAPENTIN 300 MG CAPSULE PO SCH (10:07)
[2023-03-25] MEDS ORDERED: LISINOPRIL 10 MG TABLET PO SCH (11:45)
[2023-03-25] MEDS ORDERED: CHLORTHALIDONE 25 MG TABLET PO SCH (11:45)
[2023-03-25 14:23] VITALS: BP 158/87; PULSE 69; RESP 18; TEMP 98.3
== END 2023-03-25 14:57 | disposition home or self-care (01) ==
LOC: FASUSAT 06:11 → FM/S 11:54 → FASUSAT 03-25 14:57
PROVIDERS: ATTEND Internal Medicine
PROC: 8E0Y0CZ Robotic Assisted Procedure of Lower Extremity, Open Approach (ICD-10-PCS; 2023-03-24)
PROC: 0SRD0JA Replacement of Left Knee Joint with Synthetic Substitute, Uncemented, Open Approach (ICD-10-PCS; principal; 2023-03-24 08:42)
DX: M17.11 Unilateral primary osteoarthritis, right knee (principal)
CPT/HCPCS: 20985; 27447; C1776; S2900; 36415; 73560-TC-RT-FY; 80048; 85027; 88305-TC; 88311-TC; 94760; 97010-GP; 97116-GP; 97162-GP

== ENCOUNTER 2024-02-14 14:29 | Emergency (ER) | payer OTHER ==
[2024-02-14 14:49] VITALS: BP 102/66; PULSE 63; RESP 18; TEMP 98.4; BMI 25.4
[2024-02-14] MEDS ORDERED: LIDOCAINE 4% PATCH TP ONE (15:37)
[2024-02-14] MEDS ORDERED: ACETAMINOPHEN 500 MG TABLET (FP) ONE (15:38)
[2024-02-14] MEDS ORDERED: diazePAM 2 MG TABLET ONE (15:38)
[2024-02-14] MEDS ORDERED: KETOROLAC TROMETHAMINE 30 MG/1 ML VIAL ONE (15:38)
[2024-02-14] MEDS: LIDOCAINE 4% PATCH TP ONE (15:43)
[2024-02-14] MEDS: KETOROLAC TROMETHAMINE 30 MG/1 ML VIAL IM ONE (15:43)
[2024-02-14] MEDS: ACETAMINOPHEN 500 MG TABLET (FP) PO ONE (15:44)
[2024-02-14] MEDS: diazePAM 2 MG TABLET PO ONE (15:44)
[2024-02-14] MEDS ORDERED: LIDOCAINE PATCH REMOVAL MC SCH (22:00)
== END 2024-02-14 16:33 | disposition home or self-care (01) ==
LOC: JERFT 14:29
PROC: 3E0133Z Introduction of Anti-inflammatory into Subcutaneous Tissue, Percutaneous Approach (ICD-10-PCS; principal; 2024-02-14)
DX: M54.50 Low back pain, unspecified (principal); G89.29 Other chronic pain; X50.1XXA Overexertion from prolonged static or awkward postures, initial encounter
CPT/HCPCS: 99284-25